=== PATIENT | male | born 1965 | race Caucasian/White ===

== ENCOUNTER 2021-01-15 11:03 | Outpatient (REF) | payer MEDICARE, MEDICAID, SELFPAY ==
[2021-01-15 12:28] LABS: Alanine Aminotransferase 13 U/L (0-40); Albumin Level 4.3 g/dL (3.5-5.0); Alkaline Phosphatase 83 U/L (39-117); Anion Gap 13 (12-20); Aspartate Amino Transferase 20 U/L (5-37); Bilirubin Total 1.3 mg/dL (0.0-1.0); Blood Urea Nitrogen 16 mg/dL (9-16); Calcium 9.7 mg/dL (8.4-10.2); Carbon Dioxide 26 mmol/L (22-29); Chloride 103 mmol/L (96-108); Estimated Glomerular Filt Rate > 60; Glucose Fasting 98 mg/dL (60-99); Potassium 5.1 mmol/L (3.3-5.1); Sodium 137 mmol/L (135-145); Total Protein 7.4 g/dL (6.5-8.0)
[2021-01-15 12:51] LABS: Prostate Specific Antigen 2.98 ng/mL (<0.05-4.0)
== END 2021-01-15 11:04 | disposition home or self-care (01) ==
LOC: HO.LAB 11:03
PROVIDERS: PCP Internal Medicine; Visit Provider Nurse Practitioner Family
DX: Z12.5 Encounter for screening for malignant neoplasm of prostate (principal); Z13.1 Encounter for screening for diabetes mellitus
CPT/HCPCS: 36415; 80053; 84153

== ENCOUNTER 2022-04-02 10:16 | Outpatient (REF) | payer OTHER, SELFPAY ==
[2022-04-02 12:07] LABS: Anion Gap 12 (12-20); Blood Urea Nitrogen 21 mg/dL (9-16); Calcium 9.7 mg/dL (8.4-10.2); Carbon Dioxide 31 mmol/L (22-29); Chloride 104 mmol/L (96-108); Estimated Glomerular Filt Rate > 60; Glucose Fasting 86 mg/dL (60-99); Potassium 5.1 mmol/L (3.3-5.1); Prostate Specific Antigen 3.35 ng/mL (<0.05-4.0); Sodium 142 mmol/L (135-145)
== END 2022-04-02 10:17 | disposition home or self-care (01) ==
LOC: HO.LAB 10:16
PROVIDERS: PCP Internal Medicine; Visit Provider Nurse Practitioner Family
DX: Z12.5 Encounter for screening for malignant neoplasm of prostate (principal); Z13.1 Encounter for screening for diabetes mellitus
CPT/HCPCS: 36415; 80048; 84153

== ENCOUNTER → 2022-08-15 11:46 | Outpatient (BNVA) | payer OTHER, SELFPAY | PROVIDERS: PCP Internal Medicine; Visit Provider Physician Assistant | DX: Z12.11 Encounter for screening for malignant neoplasm of colon (principal); F33.0 Major depressive disorder, recurrent, mild; Z13.1 Encounter for screening for diabetes mellitus; Z12.5 Encounter for screening for malignant neoplasm of prostate; Z80.0 Family history of malignant neoplasm of digestive organs | CPT/HCPCS: 99202 ==

== ENCOUNTER 2022-08-27 07:46 | Emergency (ER) | payer OTHER, SELFPAY ==
[2022-08-27 08:01] VITALS: BP 123/82; PULSE 87; RESP 18; TEMP 36.8; O2SAT 100; BMI 21.1
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
== END 2022-08-27 08:40 | disposition home or self-care (01) ==
PROVIDERS: Emergency Provider Emergency Medicine; PCP Internal Medicine
DX: M54.40 Lumbago with sciatica, unspecified side (principal); Z79.899 Other long term (current) drug therapy
CPT/HCPCS: 99281; 99283

== ENCOUNTER 2023-03-03 12:52 | Day surgery (SDC) | payer OTHER, SELFPAY ==
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
[2023-03-03 13:08] VITALS: BP 120/81; PULSE 85; RESP 17; TEMP 36.3; O2SAT 98; BMI 21.1
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
[2023-03-03] MEDS: Lactated Ringers 1,000 ML 100 ML IVCONT (13:31)
--- NOTE | 2023-03-03 14:05 | W.PM.OPN ---
Operative Note Operative Note Date of Service: 03/03/23 Narrative: COLONOSCOPY TILL CECUM Pre-op diagnosis: Colon cancer screening, FH of colon cancer (dad at unknown age) Patient had a negative colonoscopy in [address] Kee Post-op diagnosis:? diverticulosis, hemorrhoids Endoscopist:? Jennifer Zapata MD Anesthesia:?MAC Consent: Indications for the procedure and potential complications of bleeding, perforation, reaction to medications and missed diagnosis were discussed with the patient and informed consent was obtained. Instrument: Olympus CF H 190 L variable stiffness adult colonoscope Monitoring: Vital signs and clinical assessment, intermittent blood pressure monitoring, continuous EKG monitoring, Pulse oximetry and Carbon Dioxide monitoring were done throughout the procedure. Please see anesthesia flowsheet. Colon withdrawl time was 14 minutes. Procedure: The patient was placed in the left lateral decubitis position and pre-procedure medications were administered. After a digital rectal examination of the ano-rectum, the video colonoscope was inserted into the rectum and advanced through the colon to the cecum. The colonoscope was slowly withdrawn in a retrograde panoramic fashion and the colon mucosa was carefully examined including a retroflexed view of the rectum. Findings and interventions are described below. Procedure Difficulty: Without difficulty Findings: Terminal Ileum: Not evaluated Cecum: Normal Ascending Colon: Normal Transverse Colon: Normal Descending Colon: Normal Sigmoid Colon: Moderate diverticulosis Rectum: Normal Ano-rectum: Small internal hemorrhoids Colon preparation: Excellent Impression and Post Procedure Diagnosis: Colonoscopy Findings: no polyps were detected Moderate diverticulosis seen in the sigmoid colon Small hemorrhoids on retroflexed exam. Plan: Patient has an appointment on 03/17/23 in the GI Clinic with VALERIA Wesley . Repeat Colonoscopy in 10 years (since pt has had two negative colonoscopies). Above findings were reviewed with the patient.
[2023-03-03 14:38] VITALS: BP 102/68; PULSE 82; RESP 16; TEMP 36.2; O2SAT 99
[2023-03-03 14:53] VITALS: BP 116/78; PULSE 72; RESP 16; TEMP 36.1; O2SAT 100
== END 2023-03-03 15:54 | disposition home or self-care (01) ==
PROVIDERS: PCP Internal Medicine; Visit Provider Internal Medicine Gastroenterology
PROC: 0DJD8ZZ Inspection of Lower Intestinal Tract, Via Natural or Artificial Opening Endoscopic (ICD-10-PCS; CPT 45378; principal; 2023-03-03 14:30)
DX: Z12.11 Encounter for screening for malignant neoplasm of colon (principal); Z80.0 Family history of malignant neoplasm of digestive organs; K57.30 Diverticulosis of large intestine without perforation or abscess without bleeding; K64.8 Other hemorrhoids; F33.0 Major depressive disorder, recurrent, mild; Z79.899 Other long term (current) drug therapy; Z87.828 Personal history of other (healed) physical injury and trauma; Z87.891 Personal history of nicotine dependence
CPT/HCPCS: G0105

== ENCOUNTER → 2023-03-03 12:52 | Outpatient (BNV) | payer OTHER, SELFPAY | PROVIDERS: PCP Internal Medicine; Visit Provider Internal Medicine Gastroenterology | DX: Z12.11 Encounter for screening for malignant neoplasm of colon (principal); Z80.0 Family history of malignant neoplasm of digestive organs; K57.30 Diverticulosis of large intestine without perforation or abscess without bleeding; K64.8 Other hemorrhoids | CPT/HCPCS: G0105 ==

== ENCOUNTER 2023-03-14 07:42 | Outpatient (AMB) | payer OTHER, SELFPAY ==
[2023-03-14 08:01] VITALS: BP 112/72; PULSE 68; O2SAT 98; BMI 22.3
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
== END 2023-03-14 08:45 | disposition home or self-care (01) ==
PROVIDERS: PCP Internal Medicine; Visit Provider Nurse Practitioner Family
DX: Z23 Encounter for immunization (principal)
CPT/HCPCS: 1124F; 90471; 90686; G0439

== ENCOUNTER 2023-04-24 12:28 | Outpatient (AMB) | payer OTHER, SELFPAY ==
[2023-04-24 12:34] VITALS: BP 110/72; BMI 22.3
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
== END 2023-04-24 13:29 | disposition home or self-care (01) ==
PROVIDERS: Visit Provider Internal Medicine
DX: Z00.00 Encounter for general adult medical examination without abnormal findings (principal); F33.0 Major depressive disorder, recurrent, mild
CPT/HCPCS: 99396

== ENCOUNTER 2023-05-01 09:36 | Outpatient (AMB) | payer OTHER, SELFPAY ==
[2023-05-01 10:04] VITALS: BP 131/79; PULSE 76; RESP 16; O2SAT 97; BMI 22.4
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
== END 2023-05-01 10:16 | disposition home or self-care (01) ==
PROVIDERS: PCP Internal Medicine; Visit Provider Registered Nurse Emergency
DX: S39.012A Strain of muscle, fascia and tendon of lower back, initial encounter (principal); M47.816 Spondylosis without myelopathy or radiculopathy, lumbar region
CPT/HCPCS: 99204

== ENCOUNTER → 2023-05-01 09:36 | Outpatient (BNVA) | payer OTHER, SELFPAY | PROVIDERS: PCP Internal Medicine; Visit Provider Registered Nurse Emergency | DX: S39.012A Strain of muscle, fascia and tendon of lower back, initial encounter (principal); M47.816 Spondylosis without myelopathy or radiculopathy, lumbar region | CPT/HCPCS: 99202 ==

== ENCOUNTER 2023-12-17 07:49 | Outpatient (AMB) | payer MEDICARE, MEDICAID, SELFPAY ==
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
[2023-12-17 07:55] VITALS: BP 110/80; BMI 21.8
== END 2023-12-17 08:21 | disposition home or self-care (01) ==
LOC: HO.HMGH 07:49
PROVIDERS: PCP Internal Medicine; Visit Provider Internal Medicine
DX: F33.0 Major depressive disorder, recurrent, mild (principal); F41.9 Anxiety disorder, unspecified; G47.00 Insomnia, unspecified
CPT/HCPCS: 96127; 99213; G2211

== ENCOUNTER 2025-03-15 08:45 | Outpatient (REF) | payer OTHER, SELFPAY ==
[2025-03-15 14:06] LABS: Resp Syncy Virus RNA Qual PCR NEGATIVE (Negative); SARS COV2 PCR INHOUSE NEGATIVE (Negative)
== END 2025-03-15 08:46 | disposition home or self-care (01) ==
LOC: HO.LNP 08:45
PROVIDERS: PCP Internal Medicine; Visit Provider Physician Assistant Medical
DX: R09.81 Nasal congestion (principal); J02.9 Acute pharyngitis, unspecified; R09.89 Other specified symptoms and signs involving the circulatory and respiratory systems; J34.89 Other specified disorders of nose and nasal sinuses; Z87.891 Personal history of nicotine dependence
CPT/HCPCS: 87637; 87880; 99212

== ENCOUNTER 2025-03-15 08:45 | Outpatient (AMB) | payer OTHER, SELFPAY ==
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
[2025-03-15 08:52] VITALS: BP 108/60; PULSE 78; TEMP 36.8; O2SAT 99
--- OUTSIDE RECORDS SUMMARY | 2025-03-15 09:31 | XMS_ITS | Clinical Summary ---
Author Organization [employer] Address [address] [place] [address] [address] [place] [address] Care Team Providers Care Laborer [employer] Name Role Phone Unavailable Primary Care Provider Unavailabl e Allergies No known active allergies Medications clonazePAM (KlonoPIN) 1 MG tablet Take 1 mg by mouth if needed each day. 01/08/2023 Active cyclobenzaprine (Flexeril) 5 MG tablet TAKE 1 TABLET 3 TIMES A DAY NEEDED FOR MUSCLE SPASM FOR 7 DAYS 09/03/2022 Active FLUoxetine (PROzac) 20 MG capsule TAKE 2 CAPSULES BY MOUTH ONCE A DAY 01/08/2023 Active naproxen (Naprosyn) 500 MG tablet Take 500 mg by mouth 2 times daily. 09/03/2022 Active traZODone (Desyrel) 50 MG tablet TAKE 1/2 TO 1 TABLET BY MOUTH AT BEDTIME NEEDED 01/08/2023 Active Active Problems No known active problems Family History Medical History Relation Name Comments Diabetes Maternal Grandfather Relation Name Status Comments Maternal Grandfather Social History Tobacco Use Types Packs/Day Years Used Date Smoking Tobacco: Former Cigarettes Tobacco Cessation:Counseling Given: Not Answered Sex and Gender Information Value Date Recorded Sex Assigned at Male 03/18/2022 10:31 AM EDT Legal Sex Male 10:31 AM EDT Gender Identity Choose not to disclose 10:31 AM EDT Sexual Orientation Choose not to disclose 2021 10:31 AM EDT Plan of Treatment Health Maintenance Due Date Last Done Comments CT Colonography 1965 Colonoscopy 1965 Colorectal Cancer Screening 1965 Depression Screening 1965 FIT DNA/Cologuard 1965 FIT 1965 FOBT 1965 HIV Screening 1965 Lipid Panel 1965 SDOH Screening 1965 Sigmoidoscopy 1965 Disability Screening 1965 Alcohol/Substance Use Screening 1977 Tobacco Screening 1977 Hepatitis C Screening 11/30/1983 DTaP/Tdap/Td Vaccines (1 - Tdap) 1984 Hepatitis B Vaccines (1 of 3 - 19+ 3-dose series) 1984 Pneumococcal Vaccine: 50+ Ye ars (1 of 1 - PCV) 11/30/2015 Zoster Vaccines (1 of 2) 11/30/2015 COVID-19 Vaccine (1 - 2023-2 5 season) 2025 Influenza Vaccine (#1) 2025 RSV Patients and Pa tients Aged 60 years or older (1 - 1-dose 75+ series) 2040 HIB Vaccines Aged Out No longer eligi ble based on patient's age to complete this topic HPV Vaccines Aged Out No longer eligi ble based on patient's age to complete this topic Hepatitis A Vaccines Aged Out No long er eligible based on patient's age to complete this topic IPV Vaccines Aged Out No longer eligi ble based on patient's age to complete this topic Meningococcal B Vaccine Aged Out No l onger eligible based on patient's age to complete this topic Meningococcal Vaccine Aged Out No haider wilmar eligible based on patient's age to complete this topic RSV under 20 months Aged Out No longe r eligible based on patient's age to complete this topic Rotavirus Vaccines Aged Out No longer eligible based on patient's age to complete this topic Insurance [facility] < 65 [place] [id number]
== END 2025-03-15 09:37 | disposition home or self-care (01) ==
PROVIDERS: PCP Internal Medicine; Visit Provider Physician Assistant Medical
DX: R09.81 Nasal congestion (principal); J02.9 Acute pharyngitis, unspecified; Z13.9 Encounter for screening, unspecified